=== PATIENT | male | born 1960 | race Caucasian/White ===

== ENCOUNTER 2019-02-16 07:29 | Emergency (ER) | payer BC ==
[2019-02-16 07:45] VITALS: BP 230/107
--- NOTE | 2019-02-16 08:01 | ED Physician Documentation ---
General Adult - HISTORIAN Historian: patient - HPI Stated Complaint: right shoulder pain Chief Complaint: General Adult (Neck & shoulder spasm) Additional Information: Patient is a 58-year-old male who presents to the ER with c/o neck and shoulder pain- states he woke up with the discomfort; thinks he slept wrong. Muscle spasms felt down neck, into the right trapezius to the right scapula. His blood pressure is high; states that he has not taken his blood pressure medication this morning. Onset: hours Timing: still present Severity: moderate Modifying Factors: Slept wrong - ROS CONST: no problems EYES/ENT: none CVS/RESP: none GI/: none MS/SKIN/LYMPH: none NEURO/PSYCH: denies: headache - PAST HX Past History: hypertension Other History: other (GOUT) Immunizations: UTD Allergies/Adverse Reactions: Allergies Allergy/AdvReac Type Severity Reaction Status Date / Time No Known Allergies Allergy Verified 02/16/19 07:45 Home Medications: Ambulatory Orders Medication Instructions Recorded Baclofen 10 mg PO BID #20 tablet 02/16/19 Indomethacin [Indocin] 1 cap PO DAILY 02/16/19 Metoprolol Tartrate [Lopressor] 1 tab PO DAILY 02/16/19 - SOCIAL HX Smoking History: quit greater than 1 year Alcohol Use: none Drug Use: none - FAMILY HX Family History: No - VITAL SIGNS Vital Signs: Vital Signs Temp Pulse Resp BP Pulse Ox 98.4 F 54 L 20 230/107 99 02/16/19 07:41 02/16/19 07:41 02/16/19 07:41 02/16/19 07:41 02/16/19 07:41 - REVIEWED ASSESSMENTS Nursing Assessment Reviewed: Yes Vitals Reviewed: Yes General Adult Physical Exam - PHYSICAL EXAM GENERAL APPEARANCE: mild distress EENT: eye inspection normal, ENT inspection normal, pharynx normal, no signs of dehydration, JOSIANE NECK: stiff neck (muscle spasms) RESPIRATORY: breath sounds normal CVS: heart sounds normal, equal pulses BACK: normal inspection SKIN: warm/dry, normal color EXTREMITIES: tenderness (right trapezius to right scapula) NEURO: oriented X3, CN's nml as tested, motor nml, sensation nml, mood/affect nml Discharge Clincal Impression: Muscle spasms of neck Referrals: Сергей Ray DO [Primary Care Provider] - 2 Days Additional Instructions: Take Baclofen 10mg by mouth twice a day for muscle spasms Alternate Tylenol and Ibuprofen as needed for discomfort Use heating pad to the affected area Use Najma Malik Salonpas Follow up with PCP next week for re-evaluation Condition: Good Disposition: 01 HOME, SELF-CARE Decision to Admit: NO Decision Time: 08:00
== END 2019-02-16 07:52 | disposition home or self-care (01) ==
LOC: ED 07:29
DX: M62.838 Other muscle spasm (principal)